=== PATIENT | male | born 2000 | race Two or more races ===

== ENCOUNTER 2020-12-03 17:58 | Emergency (ER) | payer SELFPAY ==
[~2020-12-03] VITALS: Ht 180.3 cm; Wt 89.8 kg
[2020-12-03 19:07] LABS: HEMATOCRIT 47.2 % (36.7-47.1); MEAN CORPUSCULAR HEMOGLOBIN 29.1 uug (23.8-33.4); MEAN CORPUSCULAR VOLUME 84.6 fL (73.0-96.2); PLATELET COUNT (AUTO) 223 K/uL (152-348)
[2020-12-03 19:09] LABS: CREATININE 1.3 mg/dL (0.6-1.3); POTASSIUM 4.4 mmol/L (3.5-5.1)
--- NOTE | 2020-12-03 19:45 | NUR ---
Patient discharged to home in stable condition. Written and verbal after care instructions given. Patient verbalizes understanding of instructions. Stressed follow up or return to ER for worsening s/s.
[2020-12-03 19:46] VITALS: BP 148/87
== END 2020-12-03 19:46 | disposition home or self-care (01) ==
LOC: ER 18:03
DX: F41.9 Anxiety disorder, unspecified (principal); F17.210 Nicotine dependence, cigarettes, uncomplicated; Z20.2 Contact with and (suspected) exposure to infections with a predominantly sexual mode of transmission
CPT/HCPCS: 36415; 83735; 85025; 86592; 87806; 93005; A4663

== ENCOUNTER 2022-11-21 21:14 | Emergency (ER) | payer SELFPAY ==
[~2022-11-21] VITALS: Ht 182.9 cm; Wt 89.8 kg
[2022-11-21 22:11] LABS: HEMATOCRIT 43.5 % (36.7-47.1); MEAN CORPUSCULAR HEMOGLOBIN 28.7 uug (23.8-33.4); MEAN CORPUSCULAR VOLUME 82.4 fL (73.0-96.2); PLATELET COUNT (AUTO) 226 K/uL (152-348)
[2022-11-21 22:28] LABS: CARBON DIOXIDE 30 mmol/L (21-32); CHLORIDE 102 mmol/L (98-107); CREATININE 1.1 mg/dL (0.6-1.3); GLUCOSE 108 mg/dL (74-106); UREA NITROGEN, BLOOD 19 mg/dL (7-18)
--- NOTE | 2022-11-22 00:04 | NUR ---
1) Discharged home accompanied by relative. 2) Patient clinically stable at the time of this report
[2022-11-22 00:06] VITALS: BP 145/91
== END 2022-11-22 00:07 | disposition home or self-care (01) ==
LOC: ER 21:14
DX: R07.89 Other chest pain (principal); F41.9 Anxiety disorder, unspecified; F17.210 Nicotine dependence, cigarettes, uncomplicated
CPT/HCPCS: 36415; 71045; 83735; 84484; 85025; 93005; A4663